=== PATIENT | male | born 1970 | race Caucasian/White ===

== ENCOUNTER 2021-09-11 08:13 | Day surgery (SDC) | payer OTHER, SELFPAY ==
[2021-09-11 08:39] VITALS: BMI 28.7
[2021-09-11] MEDS: SODIUM CHLORIDE 0.9% 1,000 ML 84 ML IV (08:45)
[2021-09-11 08:46] VITALS: BP 109/68; PULSE 68; RESP 18; TEMP 36.3; O2SAT 98
--- NOTE | 2021-09-11 08:55 | PM.HP.1 ---
History of Present Illness History of Present Illness Date Patient Seen: 09/11/21 Chief complaint: SDC Narrative: History of colon polyps a though records are not available. Last colonoscopy 3 years ago. Patient History Medical History (Updated 09/11/21 @ 08:39 by Daria Reed RN) Hydrocele Surgical History (Updated 09/11/21 @ 08:39 by Daria Reed RN) History of thumb surgery Hx of colonoscopy Family & Social History Social History: household members spouse Tobacco & Substance use: Smoking Status Former smoker alcohol intake current alcohol intake frequency other Substance Use Type does not use Meds Home Medications and Allergies Home Medications Medication Instructions Recorded Confirmed Type No Known Home Medications 09/11/21 09/11/21 History Allergies Allergy/AdvReac Type Severity Reaction Status Date / Time No Known Drug Allergies Allergy Verified 09/10/21 13:45 Exam Vital Signs (past 8 hours): - 09/11/21 08:46 Temperature 97.3 F L Pulse Rate 68 Respiratory Rate 18 Blood Pressure 109/68 Pulse Oximetry 98 Oxygen Delivery Method Room Air Narrative Exam Narrative: Oropharynx free of lesions Chest clear to auscultation percussion Cardiac exam reveals no S3 or murmur Assessment & Plan Assessment & Plan narrative: History of colon polyps need for follow-up colonoscopy. Risks, benefits, alternatives have been explained. Further recommendations will follow the results of the study. Time Spent With Patient Critical Care time: I spent a total of [] minutes of critical care time on this patient's care today; this time is exclusive of procedural time.
--- NOTE | 2021-09-11 08:56 | PM.OP.COLON ---
Operative Date/Time/Diagnoses Date of procedure: 09/11/21 Pre-op diagnosis: See indication and findings Procedure & Clinicians Study performed: Colonoscopy Indications: History of colon polyps Surgeon: Junior Cano Procedure Notes Procedure in detail: After informed consent was obtained the patient was placed in left lateral decubitus position. The video colonoscope was introduced the rectum slowly advanced cecum. Preparation was good. On slow withdrawal mucosa was carefully examined. The scope was removed. The patient tolerated the procedure well. Blood loss none Complications none Sedation mac Findings 1. Extensive sigmoid diverticulosis with narrowed lumen 2. Three polyps in the rectosigmoid none greater than 4 mm in size Jumbo biopsy removed completely 3. Otherwise negative colonoscopy to cecum Given that there was no reason found for Cologuard positivity I would suggest performing CBC to rule out anemia and performing EGD if his anemia is present.
[2021-09-11 08:58] LABS: COVID19 -Nasal RAPID Negative (Negative)
--- NOTE | 2021-09-11 10:09 | PM.OP.COLON ---
Operative Date/Time/Diagnoses Date of procedure: 09/11/21 Pre-op diagnosis: See indication and findings Procedure & Clinicians Study performed: Colonoscopy Indications: History of colon polyps with last colonoscopy 3 years ago Surgeon: Junior Cano Procedure Notes Procedure in detail: After informed consent was obtained the patient was placed in left lateral decubitus position. The video colonoscope was introduced the rectum slowly advanced cecum. Preparation was good though there were seeds in the effluent which could not be suctioned through the scope. On slow withdrawal mucosa was carefully examined. The scope was removed. The patient tolerated procedure well. Blood loss none Complications none This sedation mac Findings 1. Fair to good preparation compromised by see this in the remaining prep 2. Extensive tattooing around 30-40 cm from previous polypectomy. No residual polyp seen 3. Otherwise negative colonoscopy to cecum I think Mr. Shelton in should have follow-up colonoscopy in 5 years.
[2021-09-11 10:15] VITALS: BP 114/73; PULSE 64; RESP 13; TEMP 36.3; O2SAT 97
[2021-09-11 10:20] VITALS: BP 118/77; PULSE 62; RESP 13; O2SAT 98
[2021-09-11 10:25] VITALS: BP 119/77; PULSE 55; RESP 13; O2SAT 99
[2021-09-11 10:30] VITALS: BP 113/89; PULSE 60; RESP 15; O2SAT 98
[2021-09-11 10:38] VITALS: BP 105/58; PULSE 72; RESP 18; O2SAT 100
== END 2021-09-11 10:40 | disposition home or self-care (01) ==
PROVIDERS: Referring Provider Internal Medicine Gastroenterology; Visit Provider Internal Medicine Gastroenterology
PROC: 0DJD8ZZ Inspection of Lower Intestinal Tract, Via Natural or Artificial Opening Endoscopic (ICD-10-PCS; CPT 45378; principal; 2021-09-11 09:30)
DX: Z12.11 Encounter for screening for malignant neoplasm of colon (principal); Z86.010 Personal history of colon polyps; Z20.822 Contact with and (suspected) exposure to COVID-19
CPT/HCPCS: 45378; 87635; C9803; J2704